=== PATIENT | female | born 2000 | race Caucasian/White ===

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

== ENCOUNTER → 2018-07-23 | Outpatient (REF) | payer BC ==
[~2018-07-23] MED LIST: ACET-683 PO; DESO1TAB5; ONDA4TAB5
[2018-07-24 00:02] LABS: CHLAMYDIA DNA AMPLIFICATION NEGATIVE (NEGATIVE); GC DNA AMPLIFICATION NEGATIVE (NEGATIVE)
== END ==
LOC: M LAB REF 16:53
PROVIDERS: ATTEND Advanced Practice Midwife
DX: Z11.3 Encounter for screening for infections with a predominantly sexual mode of transmission (principal)

== ENCOUNTER → 2020-08-24 | Outpatient (REF) | payer BC ==
[~2020-08-24] MED LIST changes: +ONDA-83; -ONDA4TAB5
[2020-08-25 15:03] LABS: CHLAMYDIA DNA AMPLIFICATION NEGATIVE (NEGATIVE); GC DNA AMPLIFICATION NEGATIVE (NEGATIVE)
== END ==
LOC: M SFHCWAGY 13:41
PROVIDERS: ATTEND Nurse Practitioner Women's Health
DX: N93.0 Postcoital and contact bleeding (principal); Z12.4 Encounter for screening for malignant neoplasm of cervix

== ENCOUNTER → 2021-05-24 | Outpatient (REF) | payer BC ==
[2021-05-24 19:32] LABS: GC DNA AMPLIFICATION NEGATIVE (NEGATIVE)
== END ==
LOC: M SFHCWAGY 17:05
PROVIDERS: ATTEND Nurse Practitioner Women's Health
DX: Z11.3 Encounter for screening for infections with a predominantly sexual mode of transmission (principal)

== ENCOUNTER → 2022-01-04 | Outpatient (REF) | payer BC | LOC: M LAB REF 12:34 | PROVIDERS: ATTEND Nurse Practitioner Family | DX: N76.0 Acute vaginitis (principal) ==

== ENCOUNTER → 2022-02-21 | Outpatient (REF) | payer BC | LOC: M LAB REF 11:48 | PROVIDERS: ATTEND Nurse Practitioner Family | DX: J02.9 Acute pharyngitis, unspecified (principal) ==

== ENCOUNTER → 2022-05-24 | Outpatient (CLI) | payer BC ==
[2022-05-24 15:27] LABS: HEMATOCRIT 39.4 % (36.0-47.0); HEMOGLOBIN 13.6 g/dl (12.0-15.5); MEAN CORPUSCULAR HEMOGLOBIN 31.6 pg (27.0-33.0); MEAN CORPUSCULAR HGB CONC 34.5 g/dl (32.0-36.5); MEAN CORPUSCULAR VOLUME 91.4 fl (80.0-96.0); PLATELET COUNT, AUTOMATED 293 10^3/uL (150-450); RED BLOOD COUNT 4.31 10^6/uL (4.00-5.40); WHITE BLOOD COUNT 4.7 10^3/uL (4.0-10.0)
[2022-05-24 16:33] LABS: HIV 1&2 SCREEN CENTAUR NEGATIVE (NEGATIVE)
[2022-05-24 16:42] LABS: HEPATITIS C VIRUS ABY INDEX 0.1 INDEX (<0.8)
[2022-05-24 16:56] LABS: GC DNA AMPLIFICATION NEGATIVE (NEGATIVE)
== END ==
LOC: M PLALAB 13:52
PROVIDERS: ATTEND Advanced Practice Midwife
DX: O99.341 Other mental disorders complicating pregnancy, first trimester (principal)

== ENCOUNTER → 2022-05-31 | Outpatient (CLI) | payer BC | LOC: M PLALAB 16:36 | PROVIDERS: ATTEND Advanced Practice Midwife | DX: Z34.80 Encounter for supervision of other normal pregnancy, unspecified trimester (principal) ==

== ENCOUNTER → 2022-08-14 | Outpatient (CLI) | payer BC | LOC: M WHC 13:26 | PROVIDERS: ATTEND Obstetrics & Gynecology | DX: Z34.92 Encounter for supervision of normal pregnancy, unspecified, second trimester (principal) ==

== ENCOUNTER → 2022-09-21 | Outpatient (CLI) | payer BC | LOC: M WHC 10:32 | PROVIDERS: ATTEND Advanced Practice Midwife | DX: Z34.02 Encounter for supervision of normal first pregnancy, second trimester (principal); Z3A.27 27 weeks gestation of pregnancy ==

== ENCOUNTER → 2022-09-21 | Outpatient (CLI) | payer BC ==
[2022-09-21 11:35] LABS: HEMATOCRIT 36.8 % (36.0-47.0); HEMOGLOBIN 12.7 g/dl (12.0-15.5); MEAN CORPUSCULAR HEMOGLOBIN 31.8 pg (27.0-33.0); MEAN CORPUSCULAR HGB CONC 34.5 g/dl (32.0-36.5); MEAN CORPUSCULAR VOLUME 92.2 fl (80.0-96.0); PLATELET COUNT, AUTOMATED 262 10^3/uL (150-450); RED BLOOD COUNT 3.99 10^6/uL (4.00-5.40); WHITE BLOOD COUNT 6.2 10^3/uL (4.0-10.0)
[2022-09-21 13:15] LABS: GC DNA AMPLIFICATION NEGATIVE (NEGATIVE)
== END ==
LOC: M PLALAB 08:06
PROVIDERS: ATTEND Advanced Practice Midwife
DX: Z34.02 Encounter for supervision of normal first pregnancy, second trimester (principal)

== ENCOUNTER → 2022-09-29 | Outpatient (CLI) | payer BC | LOC: M LAB 07:58 | PROVIDERS: ATTEND Advanced Practice Midwife | DX: O99.810 Abnormal glucose complicating pregnancy (principal) ==

== ENCOUNTER 2022-11-30 23:05 | Inpatient (IN) | payer BC, MEDICAID ==
[~2022-11-30] VITALS: Ht 157.5 cm; Wt 87.7 kg
[2022-11-30 23:29] VITALS: BP 140/93
[2022-11-30] MEDS ORDERED: PRENTAB9 PO (23:31)
[2022-11-30] MEDS ORDERED: PEPC1TAB5 PO (23:31)
[2022-11-30] MEDS ORDERED: HOME MED LIST COMPLETE! XX SCH (23:35)
[2022-11-30] MEDS ORDERED: LIDOCAINE 1% MDV 20ML VIAL INFIL PRN (23:55)
[2022-11-30] MEDS ORDERED: OXYTOCIN DRIP 30 UNITS in IV 1 EA IV PRN (23:55)
[2022-12-01] VITALS (20 sets, daily range): BP systolic 120–153; BP diastolic 69–99
[2022-12-01] MEDS: miSOPROStol 50MCG 1/2 TABLET SL SCH ×3 (00:45→08:59)
[2022-12-01 00:55] LABS: HEMATOCRIT 35.4 % (36.0-47.0); HEMOGLOBIN 12.9 g/dl (12.0-15.5); MEAN CORPUSCULAR HEMOGLOBIN 32.9 pg (27.0-33.0); MEAN CORPUSCULAR HGB CONC 36.4 g/dl (32.0-36.5); MEAN CORPUSCULAR VOLUME 90.3 fl (80.0-96.0); PLATELET COUNT, AUTOMATED 250 10^3/uL (150-450); RED BLOOD COUNT 3.92 10^6/uL (4.00-5.40); WHITE BLOOD COUNT 9.7 10^3/uL (4.0-10.0)
[2022-12-01] MEDS: ACETAMINOPHEN 500 MG TAB PO PRN ×2 (08:27→23:17)
[2022-12-01] MEDS ORDERED: MORPHINE 10 MG/ML 1ML VIAL IV ONE (15:45)
[2022-12-01] MEDS: ONDANSETRON 4MG 2ML VIAL IV PRN (15:53)
[2022-12-01] MEDS ORDERED: ONDANSETRON 4MG 2ML VIAL IV ONE (17:00)
[2022-12-01] MEDS: CALCIUM CARBONATE 500 MG CHEW U/D PO PRN (21:00)
[2022-12-01] MEDS ORDERED: OXYTOCIN DRIP 30 UNITS in IV 1 EA IV SCH (21:20)
[2022-12-01] MEDS: LR 1,000 ML IV SCH (22:28)
[2022-12-02] VITALS (36 sets, daily range): BP systolic 109–147; BP diastolic 66–92; O2SAT 96–97
[2022-12-02] MEDS: CALCIUM CARBONATE 500 MG CHEW U/D PO PRN ×2 (03:28→07:57)
[2022-12-02] MEDS: LR 1,000 ML IV SCH ×3 (04:08→21:10)
[2022-12-02] MEDS: ONDANSETRON 4MG 2ML VIAL IV PRN (05:25)
[2022-12-02] MEDS ORDERED: diphenhydrAMINE 50MG/ML VIAL IV PRN (05:35)
[2022-12-02] MEDS ORDERED: EPIDURAL/PCA KEYS XX PRN (05:35)
[2022-12-02] MEDS ORDERED: LR 500 ML IV PRN (05:35)
[2022-12-02] MEDS ORDERED: FENTANYL/ROPIVACAINE/NACL BAG 100 ML EPIDURAL SCH (05:35)
[2022-12-02] MEDS ORDERED: ePHEDrine SULFATE 25 MG/5 ML(5MG/ML) SYRINGE IVP PRN (05:35)
[2022-12-02] MEDS ORDERED: ONDANSETRON 4MG 2ML VIAL IV PRN ×2 (05:35→13:10)
[2022-12-02] MEDS ORDERED: NALOXONE INJ 0.4MG/1ML VIAL IV PRN (05:35)
[2022-12-02] MEDS ORDERED: OXYTOCIN DRIP 30 UNITS in IV 1 EA IV SCH (13:10)
[2022-12-02] MEDS ORDERED: IBUPROFEN 800 MG TAB PO PRN (13:10)
[2022-12-02] MEDS ORDERED: RHOGAM 300MCG (1500IU) INJ IM SCH (13:10)
[2022-12-02] MEDS ORDERED: ACETAMINOPHEN 500 MG TAB PO PRN (13:10)
[2022-12-02] MEDS ORDERED: DOCUSATE SODIUM 100MG CAPSULE PO PRN (13:10)
[2022-12-02] MEDS ORDERED: DIBUCAINE 1% OINTMENT 30GM TOP PRN (13:10)
[2022-12-02] MEDS ORDERED: ANUSOL HC CREAM 30GM TOP PRN (13:10)
[2022-12-02] MEDS ORDERED: ACETAMINOPHEN TAB 650MG DOSE (2X325MG) PO PRN (13:10)
[2022-12-02] MEDS ORDERED: OXYTOCIN DRIP 30 UNITS in IV 1 EA IV PRN (13:50)
[2022-12-03 03:45] VITALS: BP 118/71
[2022-12-03] MEDS: LR 1,000 ML IV SCH ×3 (05:10→21:10)
[2022-12-03] MEDS: IBUPROFEN 600MG TAB PO PRN (06:02)
[2022-12-03 06:07] VITALS: BP 133/83; O2SAT 97
[2022-12-03] MEDS: PRENATAL VITAMINS CHEWABLE TABLET PO SCH (09:51)
[2022-12-03 18:00] VITALS: BP 122/73; O2SAT 97
[2022-12-04] MEDS: LR 1,000 ML IV SCH (05:10)
[2022-12-04 06:00] VITALS: BP 120/73; O2SAT 97
[2022-12-04] MEDS ORDERED: MEASLES,MUMPS,RUBELLA VACCINE INJ (MMR-II) SC.IMMUN ONE (09:00)
[2022-12-04] MEDS: PRENATAL VITAMINS CHEWABLE TABLET PO SCH (09:37)
[2022-12-04] MEDS: IBUPROFEN 600MG TAB PO PRN (11:17)
[2022-12-04] MEDS ORDERED: ACET-683 PO (12:42)
[2022-12-04] MEDS ORDERED: IBUP80TA PO (12:42)
== END 2022-12-04 14:38 | disposition home or self-care (01) | DRG 560 ==
LOC: M LDI 23:05 → M OBS 12-02 16:09
PROVIDERS: ADMIT Specialist; ATTEND Obstetrics & Gynecology
PROC: 3E0P7GC Introduction of Other Therapeutic Substance into Female Reproductive, Via Natural or Artificial Opening (ICD-10-PCS; 2022-11-30)
PROC: 10E0XZZ Delivery of Products of Conception, External Approach (ICD-10-PCS; principal; 2022-12-02)
PROC: 0HQ9XZZ Repair Perineum Skin, External Approach (ICD-10-PCS; 2022-12-02)
PROC: 10907ZC Drainage of Amniotic Fluid, Therapeutic from Products of Conception, Via Natural or Artificial Opening (ICD-10-PCS; 2022-12-02)
DX: O13.4 Gestational [pregnancy-induced] hypertension without significant proteinuria, complicating childbirth (principal); Z3A.37 37 weeks gestation of pregnancy; Z88.0 Allergy status to penicillin; Z88.1 Allergy status to other antibiotic agents; Z79.899 Other long term (current) drug therapy; O70.0 First degree perineal laceration during delivery; Z37.0 Single live birth

== ENCOUNTER → 2022-12-20 | Outpatient (REF) | payer BC, MEDICAID ==
[~2022-12-20] MED LIST changes: +IBUP80TA PO; +PEPC1TAB5 PO; +PRENTAB9 PO
[2022-12-20 17:01] LABS: BASO # 0.1 10^3/uL (0.0-0.2); BASO % 0.8 % (0.0-1.0); EOS # 0.2 10^3/uL (0.0-0.5); EOS % 3.1 % (0.0-3.0); HEMOGLOBIN 16.3 g/dl (12.0-15.5); LYMPH # 2.4 10^3/uL (1.5-5.0); LYMPH % 38.8 % (24.0-44.0); MEAN CORPUSCULAR HEMOGLOBIN 32.7 pg (27.0-33.0); MEAN CORPUSCULAR HGB CONC 34.7 g/dl (32.0-36.5); MEAN CORPUSCULAR VOLUME 94.2 fl (80.0-96.0); MONO # 0.4 10^3/uL (0.0-0.8); MONO % 6.8 % (2.0-8.0); NEUTROPHILS # 3.1 10^3/uL (1.5-8.5); NEUTROPHILS % 50.2 % (36.0-66.0); PLATELET COUNT, AUTOMATED 402 10^3/uL (150-450); RED BLOOD COUNT 4.99 10^6/uL (4.00-5.40); WHITE BLOOD COUNT 6.1 10^3/uL (4.0-10.0)
[2022-12-20 17:23] LABS: HEMOGLOBIN A1c 5.5 % (4.0-6.0)
[2022-12-20 17:27] LABS: ALBUMIN 3.3 G/DL (3.2-5.2); ALKALINE PHOSPHATASE 133 U/L (46-116); ALT/SGPT 23 U/L (7.0-40); AST/SGOT 15 U/L (<34); BILIRUBIN,TOTAL 0.4 MG/DL (0.3-1.2); BLOOD UREA NITROGEN 16 MG/DL (9-23); CALCIUM LEVEL 9.3 MG/DL (8.5-10.1); CARBON DIOXIDE LEVEL 27 MMOL/L (20-31); CHLORIDE LEVEL 106 MMOL/L (98-107); CHOLESTEROL LEVEL 277 MG/DL (<200); CHOLESTEROL RISK RATIO 3.61 (<5); CREATININE FOR GFR 0.95 MG/DL (0.55-1.30); GLOMERULAR FILTRATION RATE > 60.0 (>60); GLUCOSE, FASTING 78 MG/DL (60-100); HDL CHOLESTEROL 76.6 MG/DL (>40); LDL CHOLESTEROL 177.6 MG/DL (<100); NON-HDL-C 200.4 MG/DL; POTASSIUM SERUM 4.4 MMOL/L (3.5-5.1); SODIUM LEVEL 143 MMOL/L (136-145); TOTAL PROTEIN 6.5 G/DL (5.7-8.2); TRIGLYCERIDES LEVEL 114 MG/DL (<150)
[2022-12-20 17:28] LABS: THYROID STIMULATING HORMONE 1.012 uIU/ML (0.55-4.78)
== END ==
LOC: M LAB REF 16:26
PROVIDERS: ATTEND Nurse Practitioner Family
DX: Z13.228 Encounter for screening for other metabolic disorders (principal)